=== PATIENT | female | born 1955 | race Caucasian/White ===

== ENCOUNTER → 2016-12-18 | Day surgery (SDC) | payer MEDICARE, MEDICAID ==
[~2016-12-18] VITALS: Ht 162.6 cm; Wt 132.2 kg
[~2016-12-18] MED LIST: ACID CONTROL150 MG PO; ADVAIR 500-501 EACH INH; ALL DAY ALLERGY10 MG PO; BUDESONIDE0.5 MG/2 M INH; BUTALB-ACETAMI1 EAC1 PO; CARAFATE1 GM PO; CIPRO500 MG PO; COLACE100 MG PO; COMPAZINE10 MG PO; DILT-XR120 MG PO; FLONASE 50 MCG/16 GM NOSE; HYDROCODON-ACE1 EAC4 PO; LASIX20 MG PO; LASIX40 MG PO; LEVOTHROID (S100 MCG PO; MAGNESIUM400 M1 PO; OMEPRAZOLE20 M1 PO; ONDANSETRON ODT4 MG SL; OXYGEN M-15 INH; PRINIVIL (ZESTR20 MG PO; SINGULAIR10 MG PO; TYLENOL EXTRA500 MG PO; VENTOLIN HFA18 GM INH; VITAMIN B-121000 MCG PO; VITAMIN D3400 UNI1 PO; VITAMIN E400 UNI1 PO; ZOCOR40 MG PO
--- NOTE | ~2016-12-18 | OR ---
PATIENT'S NAME: L[facility] BRITT [facility] AGE: 61 Y [address] ROOM: [place] [id number] [place] [facility] [place] DATE: 12/18/2016 OR/Procedure Report DISCHARGE DATE: FAMILY PHYSICIAN: Chika Ferris APRN ATTENDING PHYSICIAN: Tam Silva SURGEON: Tam Silva MD RADIOSONDE SPECIALIST: Leona Swanson PA-C. DATE OF PROCEDURE: 12/18/2016 PREOPERATIVE DIAGNOSIS: Invasive left breast cancer. POSTOPERATIVE DIAGNOSIS: Invasive left breast cancer. PROCEDURES PERFORMED: 1. Left breast wire-directed partial mastectomy. 2. Left axillary sentinel lymph node biopsy. 3. Placement of a localization wire. 4. Injection of blue dye. FINDINGS: The site marker and lesion appeared to be within the specimen at the conclusion of the case. On sentinel node biopsy, a very small node was present. This had counts of greater than 6000, with background counts of less than 100. ESTIMATED BLOOD LOSS: Less than 50 mL. COMPLICATIONS: None. INDICATIONS: The patient is a 61-year-old female, who had presented with pelvic pain and was found to have cervical cancer. She has been treated for this. In the meantime, she had further workup with mammography that revealed a mass in her breast, and was found to be an invasive ductal carcinoma. She has nearly completed her therapy for her cervical cancer, and we discussed management of her breast cancer. Ultimately, she wished to proceed with partial mastectomy and sentinel node biopsy. PROCEDURE IN DETAIL: Preoperatively, the patient was injected by Radiology with a radiocolloid. She was then taken to the Operating Room. She was supine, given IV sedation, and subsequently intubated. She was then injected with 5 mL of 10% methylene blue solution. Ultrasound was used to identify the lesion in the left upper inner quadrant. Once identified, a wire was placed for surgical identification. The wire appeared to extend through the lesion. Once this was completed, her breast was prepped with ChloraPrep and sterilely draped. PATIENT'S NAME: L[facility] BRITT [facility] AGE: 61 Y [address] ROOM: [place] [id number] [place] [facility] [place] DATE: 12/18/2016 OR/Procedure Report DISCHARGE DATE: FAMILY PHYSICIAN: Chika Ferris APRN ATTENDING PHYSICIAN: Tam Silva The sentinel node was attended to first. Using the Neoprobe for guidance, we were able to make an incision in the axilla, and carried into the subcutaneous tissues down to the axillary fat pad using electrocautery. With the Neoprobe, we were able to identify a sentinel lymph node. This was a very small node; however, had counts of greater than 6000 ex vivo. No significant blue dye was present. We further inspected the axilla with the Neoprobe. Another area with counts of 400 was identified. Another small lymph node was also present and removed. Once this was completed, background counts were less than 100. The operative field was inspected, it appeared hemostatic. The deep dermal layers were approximated with 3-0 Vicryl suture and skin was closed with 4-0 Monocryl suture. Following this, the partial mastectomy was attended to. A transverse incision was created overlying the localized lesion, and carried into the subcutaneous tissues. Subcutaneous flaps were created. The wire was delivered into the wound. The lesion was difficult to palpate, but with our wire localization, we were able to circumferentially dissect around this area using electrocautery. This was then marked for orientation. An x-ray of this was obtained, which revealed the site marker and lesion within the specimen. The operative field was then inspected, it appeared hemostatic. Deep dermal layers were approximated with 3-0 Vicryl suture, and skin closure with 4-0 Monocryl sutures. Steri-Strips and sterile dressings were placed. POSTOPERATIVE CONDITION: The patient was extubated, and sent to Recovery in good condition. MD MARIELA HAMEED/erickl /[id number] CC: MD Chika Goins APRN d: 12/18/16 2227 t: 01/04/17 1502, OPERATIVE SUMMARY
== END ==
LOC: GPOC 12-14 16:00 → GOPD 12-14 16:00 → GSDC 09:39
PROC: 0HBU0ZZ Excision of Left Breast, Open Approach (ICD-10-PCS; principal; 2016-12-18)
DX: C50.212 Malignant neoplasm of upper-inner quadrant of left female breast (principal); C53.9 Malignant neoplasm of cervix uteri, unspecified; J45.909 Unspecified asthma, uncomplicated; K21.9 Gastro-esophageal reflux disease without esophagitis; I10 Essential (primary) hypertension; E16.2 Hypoglycemia, unspecified; E78.5 Hyperlipidemia, unspecified; E03.9 Hypothyroidism, unspecified; Z17.0 Estrogen receptor positive status [ER+]; N19 Unspecified kidney failure; Z88.0 Allergy status to penicillin; Z88.8 Allergy status to other drugs, medicaments and biological substances; Z79.51 Long term (current) use of inhaled steroids; Z79.899 Other long term (current) drug therapy; Z96.651 Presence of right artificial knee joint; Z90.49 Acquired absence of other specified parts of digestive tract; Z98.890 Other specified postprocedural states
CPT/HCPCS: A9520; J2001; J2405; J3010; J7030; Q9968